=== PATIENT | female | born 1970 | race Caucasian/White ===

== ENCOUNTER 2021-02-21 12:03 | Emergency (ER) | payer MEDICARE, OTHER ==
[~2021-02-21 12:03] MED LIST: DEPAKOTE250 MG PO
[2021-02-21 14:44] LABS: BILIRUBIN 1+ mg/dL (NEGATIVE); BLOOD 2+ Ery/uL (NEGATIVE); CLARITY CLEAR (CLEAR); COLOR YELLOW (YELLOW); GLUCOSE (U) NORMAL (NORMAL); LEUKOCYTES 1+ Leu/uL (NEGATIVE); NITRITE NEGATIVE (NEGATIVE); PROTEIN TRACE (LOW) mg/dL (NEGATIVE); pH 6.5 (5.0-9.0)
[2021-02-21 14:55] LABS: BASOPHIL 1.1 % (0-2); EOSINOPHIL 0 % (0-5); HCT 40.8 % (37.0-47.0); HGB 14.3 g/dl (12.5-16.0); MCH 35.7 pg (25.0-31.0); MCV 101.7 fL (78.0-100.0); MONOCYTE 9.2 % (0-12); MPV 8.8 fL (6.0-9.5); NEUTROPHIL 71.9 % (41-80); NRBC 0; PLT 115 K/uL (150-400); RBC 4.01 M/uL (4.20-5.40); RDW 11.6 % (11.5-14.0); WBC 3.6 K/uL (4.0-10.5)
[2021-02-21 15:05] LABS: CREATININE 0.71 mg/dL (0.51-0.95); POTASSIUM 3.7 mmol/L (3.5-5.1)
[2021-02-21 15:16] LABS: BACTERIA 4+; SQUAMOUS EPITHELIAL CELLS 20-50; YEAST PRESENT
[2021-02-21] MEDS ORDERED: ONDANSETRON ODT4 MG PO (16:42)
[2021-02-21] MEDS ORDERED: PEPCID AC20 MG PO (16:43)
== END 2021-02-21 16:55 | disposition home or self-care (01) ==
LOC: FER 12:03
PROVIDERS: Emergency Medicine
DX: J02.9 Acute pharyngitis, unspecified (principal); F10.10 Alcohol abuse, uncomplicated; F17.200 Nicotine dependence, unspecified, uncomplicated; Z20.822 Contact with and (suspected) exposure to COVID-19; Z79.899 Other long term (current) drug therapy
CPT/HCPCS: 36415; 80048; 81001; 84484; 85025; 87880; 93005; G0480; J2405; U0002